=== PATIENT | female | born 1945 | race Caucasian/White ===

== ENCOUNTER 2022-04-19 12:55 | Emergency (ER) | payer BC, MEDICARE, SELFPAY ==
--- NOTE | ~2022-04-19 | CT_ITS ---
EXAMINATION: CT BRAIN AND CT FACIAL BONES WITHOUT IV CONTRAST. CLINICAL INFORMATION: Fall with facial and head trauma. COMPARISON: None TECHNIQUE: 5 mm thin axial and reformatted 2 mm thin sagittal and coronal images of brain were obtained without contrast. Axial 3 mm thin and reformatted 1.5 mm thin sagittal and coronal images of facial bones were obtained. [facility] 1018 FINDINGS: Brain: There is no acute intra-axial, extra-axial bleed, masses or midline shift. There is no acute infarction in evolution. There is no edema. The lateral ventricles are symmetrical in size and configuration but enlarged with mild prominence of cortical sulci. There is diffuse periventricular hypodensity in both cerebral hemispheres without mass effect. Bone windows reveal no calvarial abnormality. There is no scalp soft tissue abnormality. There is partial obliteration of right mastoid sinus from inflammatory changes. The left mastoid sinus is well-aerated there is mild mucoperiosteal thickening right maxillary and bilateral ethmoid sinuses. Facial bones: The maxillofacial and nasal bones are intact without any visible fracture or bony abnormality. The mandible is intact. Bilateral TM joints are symmetrical and normal. Visualized bilateral optic globes, optic nerves and bony orbits are intact. No periorbital soft tissue seen. CT/CT facial bones wo IV con IMPRESSION: 1. No acute intracranial process seen. 2. 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 3. There is no maxillofacial, nasal or mandibular fracture.
--- NOTE | ~2022-04-19 | CT_ITS ---
EXAMINATION: CT BRAIN AND CT FACIAL BONES WITHOUT IV CONTRAST. CLINICAL INFORMATION: Fall with facial and head trauma. COMPARISON: None TECHNIQUE: 5 mm thin axial and reformatted 2 mm thin sagittal and coronal images of brain were obtained without contrast. Axial 3 mm thin and reformatted 1.5 mm thin sagittal and coronal images of facial bones were obtained. [facility] 1018 FINDINGS: Brain: There is no acute intra-axial, extra-axial bleed, masses or midline shift. There is no acute infarction in evolution. There is no edema. The lateral ventricles are symmetrical in size and configuration but enlarged with mild prominence of cortical sulci. There is diffuse periventricular hypodensity in both cerebral hemispheres without mass effect. Bone windows reveal no calvarial abnormality. There is no scalp soft tissue abnormality. There is partial obliteration of right mastoid sinus from inflammatory changes. The left mastoid sinus is well-aerated there is mild mucoperiosteal thickening right maxillary and bilateral ethmoid sinuses. Facial bones: The maxillofacial and nasal bones are intact without any visible fracture or bony abnormality. The mandible is intact. Bilateral TM joints are symmetrical and normal. Visualized bilateral optic globes, optic nerves and bony orbits are intact. No periorbital soft tissue seen. CT/CT head/brain wo IV con IMPRESSION: 1. No acute intracranial process seen. 2. 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 3. There is no maxillofacial, nasal or mandibular fracture.
[2022-04-19 12:57] VITALS: BP 148/94; PULSE 80; RESP 19; TEMP 36.6; O2SAT 98; BMI 28.3
--- NOTE | 2022-04-19 13:10 | ED_ITS ---
HPI - Head Injury General Chief complaint: Head Injury Stated complaint: FALL Time Seen by Provider: 04/19/22 13:08 Source: patient Mode of arrival: ambulatory Limitations: no limitations History of Present Illness HPI Narrative: Getting out of the car and tripped and landed on her face. This happened yesterday, now with increasing ecchymosis. No LOC. No vomiting. Patient is on baby ASA everyday. MD Complaint: head injury and fall Onset (ago): day(s) Mechanism of Injury: fall Place: outdoors Loss of Consciousness: no Location of injury: face Severity: mild Other Injuries: laceration Related Data Allergies Allergy/AdvReac Type Severity Reaction Status Date / Time atorvastatin [From LIPITOR] Allergy Unknown UNKNOWN Unverified 02/11/20 16:56 Review of Systems Review of Systems: Yes all other systems are reviewed and are negative Neurologic: Denies Sensory deficit (Neuro) [facility] Social History Social History Advance Directives: Yes Advance Directives Information Provided: Yes Advance Directives on File: No Physical Exam Vital Signs: Vital Signs: Last Vital Signs Temp 98 F 04/19/22 12:57 Pulse 80 04/19/22 12:57 Resp 19 04/19/22 12:57 BP 148/94 H 04/19/22 12:57 Pulse Ox 98 04/19/22 12:57 O2 Del Method 04/19/22 12:57 BMI result Body Mass Index 28.3 Const: General: healthy appearing Nutritional Appearance: average body habitus Orientation/consciousness: oriented to person and patient oriented x3 Limitations: no limitations HEENT: Other: left orbital ecchymosis Mouth: Normal oral and palatal mucosa present and oropharynx normal Throat: Yes posterior oropharynx normal Eyes: General: appearance normal, both eyes and all related structures Neck: Other: supple Neck: Yes normal visual inspection Chest: Chest palpation & inspection: normal inspection of the chest Resp: Auscultation: clear to auscultation bilaterally Cardio: Jugular venous distension: no JVD Rate: regular rate Rhythm: regular rhythm Heart sounds: S1 normal heart sound present and S2 normal heart sound present GI: Inspection: Yes normal to inspection Palpation (GI): Soft to palpation, nontender and No hepatosplenomegaly present Auscultation: normal bowel sounds : General: Yes no CVA tenderness Back/Spine/Pelvis: Back: no CVA tenderness Skin: General skin exam: no rashes or lesions noted Neuro: General: oriented to person and patient oriented x3 Cranial nerves: Yes CN's II-XII intact bilaterally Motor exam (neuro): 5/5 motor strength present throughout Sensory Exam: No Sensory deficit (Neuro) Extrem: General: Yes normal to inspection Psych: Appearance: grossly normal Course Reevaluation(s) Reevaluation #1: No evidence of fracture or bleed Time: 14:26 [facility] - Head Injury Imaging Data Head and Face CT: Radiologist's impression: IMPRESSION: 1.? No acute intracranial process seen. 2.? 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 3. There is no maxillofacial, nasal or mandibular fracture.? Discharge Plan Discharge Clinical Impression: Closed head injury, Contusion of face Patient Disposition: Home, Self-Care Instructions: Head Injury (ED), Facial Contusion (ED) Referrals: Diana Cardozo MD [Primary Care Provider] - 5 days
== END 2022-04-19 14:41 | disposition home or self-care (01) ==
PROVIDERS: Emergency Provider Emergency Medicine; PCP Family Medicine
DX: S09.90XA Unspecified injury of head, initial encounter (principal); S00.12XA Contusion of left eyelid and periocular area, initial encounter; V48.4XXA Person boarding or alighting a car injured in noncollision transport accident, initial encounter; Y93.89 Activity, other specified; Y92.410 Unspecified street and highway as the place of occurrence of the external cause; Y99.9 Unspecified external cause status
CPT/HCPCS: 70450; 70486; 99283; 99284

== ENCOUNTER 2022-06-18 15:44 | Outpatient (REF) | payer BC, SELFPAY ==
[2022-06-18 16:11] LABS: MANUAL DIFF FLAG NO
[2022-06-18 16:35] LABS: Basophils Percent Auto 0.4 % (0-2); Eosinophils Absolute Auto 0.1 X10*3/uL (0.0-0.4); Eosinophils Percent Auto 1.4 % (0-4); Hematocrit 44.8 % (37.0-47.0); Hemoglobin 14.5 g/dl (12.0-16.0); Imm Gran Abs Auto 0.04 X10*3/uL (0.00-0.03); Imm Gran Pct Auto 0.4 % (0.0-0.4); Lymphocytes Percent Auto 20.8 % (20-40); Mean Corpuscular HGB Conc 32.4 g/dl (31.0-35.0); Mean Corpuscular Volume 86.7 fL (80.0-98.0); Mean Platelet Volume 11.6 fL (9.4-12.3); Monocytes Absolute Auto 0.6 X10*3/uL (0.1-1.2); Monocytes Percent Auto 6.1 % (2-11); Neutrophils Absolute Auto 6.8 x10*3/uL (2.0-8.3); Neutrophils Percent Auto 70.9 % (45-73); Platelet Count 266 X10*3/uL (160-400); Red Blood Count 5.17 X10*6/uL (4.20-5.50); Red Cell Distribution Width 15.4 % (11.0-16.0); White Blood Count 9.5 X10*3/uL (4.8-10.8)
[2022-06-18 17:04] LABS: Anion Gap 14 (12-20); Blood Urea Nitrogen 12 mg/dL (9-16); Calcium 9.4 mg/dL (8.4-10.2); Carbon Dioxide 25 mmol/L (22-29); Chloride 109 mmol/L (96-108); Estimated Glomerular Filt Rate > 60; Glucose Random 110 mg/dL (60-115); Potassium 4.5 mmol/L (3.3-5.1); Sodium 143 mmol/L (135-145)
[2022-06-18 17:21] LABS: T4 Thyroxine 8.6 ug/dL (4.5-12.0); Thyroid Stimulating Hormone 1.22 uIU/mL (0.32-4.0)
[2022-06-18 17:34] LABS: Folate 10.8 ng/mL (> or = 4.0); Vitamin B12 905 pg/mL (200-900)
[2022-06-19 17:14] LABS: Homocysteine 10.8 umol/L (<10.4)
[2022-06-21 09:59] LABS: Methylmalonic Acid 203 nmol/L (87-318)
[2022-06-22 23:53] LABS: VITAMIN D (1,25 OH) D3 65 pg/mL; Vit D (1,25-Dihydroxy) Total 65 pg/mL (18-72); Vitamin D (1,25 OH) D2 <8 pg/mL
== END 2022-06-18 15:45 | disposition home or self-care (01) ==
LOC: HO.LAB 15:44
PROVIDERS: PCP Family Medicine; Visit Provider Psychiatry & Neurology Neurology
DX: G31.84 Mild cognitive impairment of uncertain or unknown etiology (principal)
CPT/HCPCS: 36415; 80048; 82607; 82652; 82746; 83090; 83921; 84436; 84443; 85025